=== PATIENT | male | born 1995 | race Caucasian/White ===

== ENCOUNTER 2023-03-11 11:01 | Emergency (ER) | payer MEDICAID ==
[~2023-03-11] VITALS: Ht 170.2 cm; Wt 114.0 kg
[2023-03-11 11:12] VITALS: O2SAT 98
[2023-03-11] MEDS ORDERED: KETOROLAC 60MG/2ML VIAL IM ONE (11:45)
[2023-03-11] MEDS ORDERED: ACETAMINOPHEN 325MG TABLET PO ONE (11:45)
[2023-03-11] MEDS ORDERED: LIDOCAINE 5% PATCH TOP SCH (11:45)
[2023-03-11] MEDS ORDERED: CYCLOBENZAPRINE 10MG TABLET PO ONE (14:00)
[2023-03-11] MEDS ORDERED: CYCL5TAB MT (14:03)
[2023-03-11] MEDS ORDERED: ACET-2708 MT (14:03)
[2023-03-11] MEDS ORDERED: LIDO700A15 TP (14:03)
[2023-03-11] MEDS ORDERED: NAPR-681 MT (14:03)
[2023-03-11] MEDS ORDERED: ALBU6.7H15 INH (14:58)
[2023-03-11 15:02] VITALS: BP 121/82; PULSE 86; RESP 18; TEMP 98.1
== END 2023-03-11 15:05 | disposition home or self-care (01) ==
LOC: ER 11:14
DX: M54.50 Low back pain, unspecified (principal); J45.909 Unspecified asthma, uncomplicated
CPT/HCPCS: 99283; 96372; J1885